=== PATIENT | female | born 1955 | race Hispanic/Latino ===

== ENCOUNTER 2019-08-19 18:44 | Inpatient (IN) | payer MEDICARE ==
[~2019-08-19] VITALS: Ht 149.9 cm; Wt 96.8 kg
[~2019-08-19 18:44] MED LIST: ACET-66 PO; CALC117719 PO; DICY20TA11 PO; FOLI1TAB85 PO; GLIP5TAB11 PO; KBU PO; LISI-617 PO; ONDA4TAB10 PO; TRAM50TA4 PO; TYLENOL PM PO
[2019-08-19 20:10] LABS: BASOPHILS % (AUTO) 0.2 % (0.0-5.0); HEMATOCRIT 39.4 % (36-48); LYMPHOCYTES % (AUTO) 22.2 % (21.0-51.0); MEAN CORPUSCULAR HGB CONC 32.5 g/dL (32.0-36.0); MEAN CORPUSCULAR VOLUME 101.5 fL (79-99); MONOCYTES % (AUTO) 6.4 % (3.0-13.0); NEUTROPHILS % (AUTO) 70.8 % (40.0-77.0); PLATELET COUNT (AUTO) 205 K/uL (130-400); RED BLOOD CELL COUNT(AUTO) 3.88 MIL/uL (4.00-5.50); RED CELL DISTRIBUTION WIDTH 13.2 % (11.0-15.5); WHITE BLOOD COUNT (AUTO) 5.4 K/uL (4.8-10.8)
[2019-08-19] MEDS ORDERED: LEVOFLOXACIN 500 MG/D5W 100 ML 100 ML ONE (20:13)
[2019-08-19 20:38] LABS: INR 0.98 (0.85-1.15); PARTIAL THROMBOPLASTIN TIME 30.3 SEC (26.3-35.5); PROTHROMBIN TIME 10.6 SEC (9.6-11.6)
[2019-08-19 20:53] LABS: ALBUMIN 3.7 g/dL (3.5-5.0); BILIRUBIN,TOTAL 0.5 mg/dL (0.2-1.0); POTASSIUM 4.2 mmol/L (3.5-5.1); TOTAL PROTEIN, SERUM 8.9 g/dL (6.0-8.3)
[2019-08-19 20:59] LABS: CREATININE 9.2 mg/dL (0.5-1.5)
[2019-08-19] MEDS ORDERED: IOHEXOL-350 75 ML VIAL IV ONE (21:52)
[2019-08-19] MEDS ORDERED: IOHEXOL 350 MG/ML 100ML INFUS..BTL IV ONE (22:07)
[2019-08-20] MEDS ORDERED: HYDRALAZINE HCL 20 MG/ML VIAL IV PRN (00:15)
[2019-08-20] MEDS ORDERED: MORPHINE SULFATE 2 MG/ML 1ML SYG IV PRN (00:15)
[2019-08-20] MEDS: AZITHROMYCIN 500MG+NS 250ML 250 ML IV SCH (00:15)
[2019-08-20] MEDS ORDERED: NITROGLYCERIN 0.4 MG SL TAB SL PRN (00:15)
[2019-08-20] MEDS: CEFTRIAXONE SODIUM 1 GM IV SCH (00:15)
[2019-08-20] MEDS ORDERED: LACTULOSE 20 GM/30 ML UDCUP PO PRN (00:15)
[2019-08-20] MEDS ORDERED: ACETAMINOPHEN 325 MG TAB PO PRN ×2 (00:15)
[2019-08-20] MEDS ORDERED: ONDANSETRON HCL 4 MG/2 ML VIAL IV PRN (00:15)
[2019-08-20] MEDS: HEPARIN SODIUM 5000UNIT/ML 1ML VIAL SQ SCH ×3 (00:45→22:43)
[2019-08-20] MEDS ORDERED: AZITHROMYCIN 500MG+NS 250ML 250 ML IV ONE (00:50)
[2019-08-20] MEDS ORDERED: CEFTRIAXONE SODIUM 1 GM ONE (00:50)
[2019-08-20 00:59] LABS: CHOLESTEROL 120 mg/dL (<200); HDL CHOLESTEROL 44 mg/dL (35-85); LDL DIRECT 58 mg/dL (0-99); TRIGLYCERIDES 184 mg/dL (30-200)
[2019-08-20 01:27] LABS: HEMOGLOBIN A1C 7.2 % (4.0-6.0)
[2019-08-20] MEDS: ALBUTEROL INHALER 90MCG/INH IH SCH ×6 (02:00→22:00)
[2019-08-20 04:20] LABS: BASOPHILS % (AUTO) 0.2 % (0.0-5.0); HEMATOCRIT 32.7 % (36-48); LYMPHOCYTES % (AUTO) 24.5 % (21.0-51.0); MEAN CORPUSCULAR HEMOGLOBIN 32.7 pg (27.0-33.0); MEAN CORPUSCULAR HGB CONC 32.7 g/dL (32.0-36.0); MONOCYTES % (AUTO) 7.4 % (3.0-13.0); NEUTROPHILS % (AUTO) 67.5 % (40.0-77.0); PLATELET COUNT (AUTO) 170 K/uL (130-400); RED BLOOD CELL COUNT(AUTO) 3.27 MIL/uL (4.00-5.50); RED CELL DISTRIBUTION WIDTH 12.9 % (11.0-15.5); WHITE BLOOD COUNT (AUTO) 4.6 K/uL (4.8-10.8)
[2019-08-20 04:41] LABS: POTASSIUM 4.5 mmol/L (3.5-5.1)
[2019-08-20] MEDS: INSULIN HUMULIN R 100 UNIT/ML 3ML SQ SCH ×4 (07:30→21:00)
[2019-08-20] MEDS ORDERED: ENOXAPARIN SODIUM 40 MG/0.4 ML SYRINGE SQ SCH (09:00)
[2019-08-20] MEDS: FAMOTIDINE 20MG TAB 20 MG TAB PO SCH (09:00)
[2019-08-20] MEDS: METOPROLOL TARTRATE 25 MG TAB PO SCH ×2 (09:00→21:00)
[2019-08-20] MEDS ORDERED: FAMOTIDINE 20MG TAB 20 MG TAB ONE (11:18)
[2019-08-20] MEDS ORDERED: METOPROLOL TARTRATE 25 MG TAB ONE (11:18)
[2019-08-20] MEDS: METHYLPREDNISOLONE SOD SUCC 40MG/ML 1ML IVP SCH ×2 (11:30→21:00)
[2019-08-20] MEDS ORDERED: METHYLPREDNISOLONE SOD SUCC 40MG/ML 1ML ONE (11:34)
[2019-08-20] MEDS ORDERED: HEPARIN SODIUM 5000UNIT/ML 1ML VIAL ONE (18:23)
[2019-08-20] MEDS: ATORVASTATIN CALCIUM 20 MG TABLET PO SCH (21:00)
[2019-08-20 23:05] VITALS: BP 151/73
[2019-08-20] MEDS ORDERED: GABA-529 PO (23:26)
[2019-08-20] MEDS ORDERED: FOLI1TAB85 PO (23:26)
[2019-08-20] MEDS ORDERED: LATA7.5D OP (23:26)
[2019-08-20] MEDS ORDERED: RELION GLUCOSE PO (23:26)
[2019-08-20 23:52] VITALS: BP 148/68
[2019-08-21] MEDS: AZITHROMYCIN 500MG+NS 250ML 250 ML IV SCH (00:17)
[2019-08-21] MEDS: CEFTRIAXONE SODIUM 1 GM IV SCH (00:18)
[2019-08-21] MEDS: ALBUTEROL INHALER 90MCG/INH IH SCH ×4 (01:10→20:37)
[2019-08-21 03:40] VITALS: BP 148/77
[2019-08-21] MEDS: INSULIN HUMULIN R 100 UNIT/ML 3ML SQ SCH ×4 (05:45→21:33)
[2019-08-21 06:49] LABS: BASOPHILS % (AUTO) 0.2 % (0.0-5.0); HEMATOCRIT 33.1 % (36-48); LYMPHOCYTES % (AUTO) 17.2 % (21.0-51.0); MEAN CORPUSCULAR HEMOGLOBIN 32.4 pg (27.0-33.0); MEAN CORPUSCULAR HGB CONC 32.3 g/dL (32.0-36.0); MEAN CORPUSCULAR VOLUME 100.3 fL (79-99); MONOCYTES % (AUTO) 6.9 % (3.0-13.0); PLATELET COUNT (AUTO) 164 K/uL (130-400); RED CELL DISTRIBUTION WIDTH 12.6 % (11.0-15.5); WHITE BLOOD COUNT (AUTO) 4.4 K/uL (4.8-10.8)
[2019-08-21 06:57] LABS: CREATININE 7.4 mg/dL (0.5-1.5); POTASSIUM 4.4 mmol/L (3.5-5.1)
[2019-08-21 08:41] VITALS: BP 150/73
[2019-08-21] MEDS ORDERED: HEPARIN SODIUM 5000UNIT/ML 1ML VIAL SQ SCH ×2 (09:00→22:00)
[2019-08-21] MEDS: METOPROLOL TARTRATE 25 MG TAB PO SCH ×2 (10:26→20:30)
[2019-08-21] MEDS: LISINOPRIL 5 MG TABLET PO SCH (10:26)
[2019-08-21] MEDS: FAMOTIDINE 20MG TAB 20 MG TAB PO SCH (10:26)
[2019-08-21] MEDS: FOLIC ACID/VITAMIN B COMP W-C 1 CAP TAB PO SCH (10:26)
[2019-08-21] MEDS: METHYLPREDNISOLONE SOD SUCC 40MG/ML 1ML IVP SCH (10:27)
[2019-08-21 12:39] VITALS: BP 154/79
--- NOTE | 2019-08-21 16:04 | NUR ---
cm note spoke to pt's daughter bam, and states pt resides at home, with her, pt ambulates with walker and cane, no HH, no provider, states she provides transports to , [place] plan is back to same home setting. provided with iinformation on provider services and [facility] agency on aging for possible provider assistance. states no dc needs. Addendum: 08/21/19 at 1608 by JUAN NUNEZ CM Amended: Links added.
[2019-08-21 16:28] VITALS: BP 146/78
--- NOTE | 2019-08-21 18:30 | NUR ---
LABS DR ALFREDO AWARE OF ABNORMAL LABS
[2019-08-21] MEDS ORDERED: METHYLPREDNISOLONE SOD SUCC 125MG/2ML VIAL IVP SCH (19:15)
[2019-08-21] MEDS ORDERED: METHYLPREDNISOLONE SOD SUCC 40MG/ML 1ML IVP SCH (19:15)
[2019-08-21] MEDS ORDERED: PHARMACY COMMUNICATION MISC SCH (19:30)
[2019-08-21 20:29] VITALS: BP 109/50
[2019-08-21] MEDS: ATORVASTATIN CALCIUM 20 MG TABLET PO SCH (20:30)
[2019-08-21] MEDS: GABAPENTIN 100 MG CAPSULE PO SCH (20:30)
[2019-08-21] MEDS: METHYLPREDNISOLONE SOD SUCC 125MG/2ML VIAL IVP SCH (20:30)
[2019-08-21] MEDS: LATANOPROST 2.5 ML DROPS OP SCH (20:36)
[2019-08-21] MEDS ORDERED: ALBUTEROL INHALER 90MCG/INH IH SCH (22:00)
[2019-08-22] VITALS (7 sets, daily range): BP systolic 119–148; BP diastolic 51–73
[2019-08-22] MEDS: CEFTRIAXONE SODIUM 1 GM IV SCH (00:23)
[2019-08-22] MEDS: AZITHROMYCIN 500MG+NS 250ML 250 ML IV SCH (00:24)
[2019-08-22] MEDS: ALBUTEROL INHALER 90MCG/INH IH SCH ×6 (02:12→22:24)
[2019-08-22] MEDS: METHYLPREDNISOLONE SOD SUCC 125MG/2ML VIAL IVP SCH ×3 (04:24→22:10)
[2019-08-22] MEDS: INSULIN HUMULIN R 100 UNIT/ML 3ML SQ SCH ×3 (06:19→22:11)
[2019-08-22 06:56] LABS: HEMATOCRIT 33.7 % (36-48); LYMPHOCYTES % (AUTO) 10.1 % (21.0-51.0); MEAN CORPUSCULAR HEMOGLOBIN 32.8 pg (27.0-33.0); MEAN CORPUSCULAR HGB CONC 32.6 g/dL (32.0-36.0); MEAN CORPUSCULAR VOLUME 100.6 fL (79-99); MONOCYTES % (AUTO) 1.8 % (3.0-13.0); NEUTROPHILS % (AUTO) 87.8 % (40.0-77.0); PLATELET COUNT (AUTO) 192 K/uL (130-400); RED BLOOD CELL COUNT(AUTO) 3.35 MIL/uL (4.00-5.50); RED CELL DISTRIBUTION WIDTH 12.8 % (11.0-15.5); WHITE BLOOD COUNT (AUTO) 7.2 K/uL (4.8-10.8)
[2019-08-22 07:19] LABS: ALBUMIN 2.7 g/dL (3.5-5.0); BILIRUBIN,TOTAL 0.3 mg/dL (0.2-1.0); CRP QUANTITATIVE 88.1 mg/L (0.00-9.0); POTASSIUM 4.4 mmol/L (3.5-5.1); TOTAL PROTEIN, SERUM 7.1 g/dL (6.0-8.3)
[2019-08-22 07:21] LABS: CREATININE 9.7 mg/dL (0.5-1.5)
--- NOTE | 2019-08-22 07:45 | NUR ---
ASSESSMENT ENCOUNTERED PT A&OX3, CALM COOPERATIVE AND DOES NOT APPEAR TO BE IN ANY DISTRESS NOR ANY NEURO DEFICITS PRESENT. PT DENIES PAIN, DIZZINESS OR NAUSEA BUT DOES C/O DYSPNEA ON EXERTION, INFORMED PT TO NOTIFY FOR ASSISTANCE TO BATHROOM FOR O2SAT MONITORING WITH AMBULATION. PT AGREED AND STATED WOULD CALL. LAVA WITH BRUIT/THRILL PRESENT. CALL LIGHT WITHIN REACH.
[2019-08-22] MEDS ORDERED: METHYLPREDNISOLONE SOD SUCC 40MG/ML 1ML IVP SCH ×2 (09:15→13:00)
[2019-08-22] MEDS ORDERED: PHARMACY COMMUNICATION MISC SCH (10:30)
[2019-08-22] MEDS: FAMOTIDINE 20MG TAB 20 MG TAB PO SCH (10:40)
[2019-08-22] MEDS: LISINOPRIL 5 MG TABLET PO SCH (10:40)
[2019-08-22] MEDS: METOPROLOL TARTRATE 25 MG TAB PO SCH ×2 (10:40→22:10)
[2019-08-22] MEDS: FOLIC ACID/VITAMIN B COMP W-C 1 CAP TAB PO SCH (10:40)
[2019-08-22] MEDS: ENOXAPARIN SODIUM 100 MG/1 ML SQ SCH (10:41)
[2019-08-22] MEDS ORDERED: METHYLPREDNISOLONE SOD SUCC 125MG/2ML VIAL IVP SCH (13:00)
[2019-08-22] MEDS: ATORVASTATIN CALCIUM 20 MG TABLET PO SCH (22:10)
[2019-08-22] MEDS: GABAPENTIN 100 MG CAPSULE PO SCH (22:10)
[2019-08-22] MEDS: LATANOPROST 2.5 ML DROPS OP SCH (22:25)
[2019-08-23] MEDS: ALBUTEROL INHALER 90MCG/INH IH SCH ×6 (02:28→22:36)
[2019-08-23] MEDS: CEFTRIAXONE SODIUM 1 GM IV SCH (02:28)
[2019-08-23 03:41] VITALS: BP 129/58
[2019-08-23] MEDS: AZITHROMYCIN 500MG+NS 250ML 250 ML IV SCH (03:47)
[2019-08-23 05:33] LABS: HEMATOCRIT 34.7 % (36-48); MEAN CORPUSCULAR HEMOGLOBIN 32.6 pg (27.0-33.0); MEAN CORPUSCULAR HGB CONC 32.6 g/dL (32.0-36.0); PLATELET COUNT (AUTO) 221 K/uL (130-400); RED BLOOD CELL COUNT(AUTO) 3.47 MIL/uL (4.00-5.50); RED CELL DISTRIBUTION WIDTH 12.9 % (11.0-15.5); WHITE BLOOD COUNT (AUTO) 11.7 K/uL (4.8-10.8)
[2019-08-23] MEDS: INSULIN HUMULIN R 100 UNIT/ML 3ML SQ SCH ×4 (05:49→22:41)
[2019-08-23 05:56] LABS: ALBUMIN 2.7 g/dL (3.5-5.0); BILIRUBIN,TOTAL 0.4 mg/dL (0.2-1.0); CRP QUANTITATIVE 55.2 mg/L (0.00-9.0); POTASSIUM 4.4 mmol/L (3.5-5.1); TOTAL PROTEIN, SERUM 6.9 g/dL (6.0-8.3)
[2019-08-23 05:58] LABS: BAND NEUTROPHILS % (MANUAL) 6 % (0-2); LYMPHOCYTES % (MANUAL) 10 % (22-44); MAN.DIFF COMMENT-IMPRESSION MANUAL DIFFERENTIAL; PLATELET MORPHOLOGY COMMENT ADEQUATE; SEGMENTED NEUTROPHILS % 84 % (40-70)
[2019-08-23 06:01] LABS: CREATININE 11.6 mg/dL (0.5-1.5)
[2019-08-23] MEDS: METHYLPREDNISOLONE SOD SUCC 125MG/2ML VIAL IVP SCH ×3 (06:32→21:16)
[2019-08-23] MEDS ORDERED: REMDESIVIR (INVESTIGATIONAL) 200 MG in SODIUM CHLORIDE 0.9% 250 ML IV ONE (08:45)
[2019-08-23 08:51] VITALS: BP 123/69
[2019-08-23] MEDS: FAMOTIDINE 20MG TAB 20 MG TAB PO SCH (09:55)
[2019-08-23] MEDS: FOLIC ACID/VITAMIN B COMP W-C 1 CAP TAB PO SCH (09:55)
[2019-08-23] MEDS: METOPROLOL TARTRATE 25 MG TAB PO SCH ×2 (09:55→21:17)
[2019-08-23] MEDS: LISINOPRIL 5 MG TABLET PO SCH (09:56)
[2019-08-23] MEDS: ENOXAPARIN SODIUM 100 MG/1 ML SQ SCH (09:56)
[2019-08-23 10:12] LABS: HEPATITIS A ANTIBODY IGM Negative (Negative); HEPATITIS B CORE IGM Negative (Negative); HEPATITIS Bs ANTIGEN SCREEN P Negative (Negative)
[2019-08-23 12:36] VITALS: BP 140/60
[2019-08-23 15:31] VITALS: BP 141/67
[2019-08-23 19:37] VITALS: BP 136/86
[2019-08-23] MEDS: ATORVASTATIN CALCIUM 20 MG TABLET PO SCH (21:17)
[2019-08-23] MEDS: GABAPENTIN 100 MG CAPSULE PO SCH (21:17)
[2019-08-23] MEDS: LATANOPROST 2.5 ML DROPS OP SCH (22:35)
[2019-08-23 23:28] VITALS: BP 148/61
--- NOTE | 2019-08-24 | NUR ---
PT IS AMBULATING. MINIMAL SOB. NO DISTRESS NOTED. CONTINUES ON ABT. ROCEPHIN AND AZITHROMYCIN.
[2019-08-24] MEDS: CEFTRIAXONE SODIUM 1 GM IV SCH (00:25)
[2019-08-24] MEDS: AZITHROMYCIN 500MG+NS 250ML 250 ML IV SCH (00:25)
[2019-08-24 03:13] VITALS: BP 146/68
[2019-08-24] MEDS: METHYLPREDNISOLONE SOD SUCC 125MG/2ML VIAL IVP SCH ×2 (05:15→06:00)
[2019-08-24] MEDS: INSULIN HUMULIN R 100 UNIT/ML 3ML SQ SCH ×3 (05:46→17:22)
[2019-08-24] MEDS: ALBUTEROL INHALER 90MCG/INH IH SCH ×6 (06:08→21:17)
[2019-08-24 08:02] LABS: BASOPHILS % (AUTO) 0.1 % (0.0-5.0); MEAN CORPUSCULAR HEMOGLOBIN 32.8 pg (27.0-33.0); MEAN CORPUSCULAR HGB CONC 33.2 g/dL (32.0-36.0); MEAN CORPUSCULAR VOLUME 98.8 fL (79-99); MONOCYTES % (AUTO) 2.4 % (3.0-13.0); NEUTROPHILS % (AUTO) 92.3 % (40.0-77.0); PLATELET COUNT (AUTO) 233 K/uL (130-400); RED BLOOD CELL COUNT(AUTO) 3.44 MIL/uL (4.00-5.50); RED CELL DISTRIBUTION WIDTH 12.8 % (11.0-15.5); WHITE BLOOD COUNT (AUTO) 13.3 K/uL (4.8-10.8)
[2019-08-24] MEDS: METOPROLOL TARTRATE 25 MG TAB PO SCH ×2 (08:17→21:16)
[2019-08-24] MEDS: FOLIC ACID/VITAMIN B COMP W-C 1 CAP TAB PO SCH (08:18)
[2019-08-24] MEDS: LISINOPRIL 5 MG TABLET PO SCH (08:20)
[2019-08-24] MEDS: ENOXAPARIN SODIUM 100 MG/1 ML SQ SCH (08:21)
[2019-08-24 08:32] LABS: ALBUMIN 2.9 g/dL (3.5-5.0); BILIRUBIN,TOTAL 0.4 mg/dL (0.2-1.0); CRP QUANTITATIVE 40.5 mg/L (0.00-9.0); TOTAL PROTEIN, SERUM 7.3 g/dL (6.0-8.3)
[2019-08-24 08:34] VITALS: BP 129/80
[2019-08-24 08:35] LABS: CREATININE 7.9 mg/dL (0.5-1.5)
[2019-08-24] MEDS ORDERED: REMDESIVIR (INVESTIGATIONAL) 100 MG in SODIUM CHLORIDE 0.9% 250 ML IV SCH (09:00)
[2019-08-24] MEDS: FAMOTIDINE 20MG TAB 20 MG TAB PO SCH (09:20)
[2019-08-24] MEDS: METHYLPREDNISOLONE SOD SUCC 40MG/ML 1ML IVP SCH ×2 (09:30→17:23)
[2019-08-24 12:30] VITALS: BP 127/62
[2019-08-24 16:42] VITALS: BP 147/77
[2019-08-24 20:46] VITALS: BP 147/87
[2019-08-24] MEDS ORDERED: INSULIN HUMULIN R 100 UNIT/ML 3ML ONE (21:13)
[2019-08-24] MEDS: GABAPENTIN 100 MG CAPSULE PO SCH (21:16)
[2019-08-24] MEDS: LATANOPROST 2.5 ML DROPS OP SCH (21:16)
[2019-08-24] MEDS: ATORVASTATIN CALCIUM 20 MG TABLET PO SCH (21:16)
[2019-08-24] MEDS ORDERED: LOPERAMIDE HCL 2 MG CAP PO ONE (22:04)
[2019-08-25] VITALS: BP 149/85
[2019-08-25] MEDS: CEFTRIAXONE SODIUM 1 GM IV SCH (00:29)
[2019-08-25] MEDS: AZITHROMYCIN 500MG+NS 250ML 250 ML IV SCH (00:30)
[2019-08-25] MEDS: METHYLPREDNISOLONE SOD SUCC 40MG/ML 1ML IVP SCH (01:03)
[2019-08-25] MEDS: ALBUTEROL INHALER 90MCG/INH IH SCH ×5 (01:04→18:00)
--- NOTE | 2019-08-25 01:31 | NUR ---
IV REDRESSED. PT CONTINUES ON ABT. AND SOLUMEDROL.
[2019-08-25 04:00] VITALS: BP 138/93
[2019-08-25 06:18] LABS: HEMATOCRIT 29.6 % (36-48); MEAN CORPUSCULAR HEMOGLOBIN 32.9 pg (27.0-33.0); MEAN CORPUSCULAR HGB CONC 33.1 g/dL (32.0-36.0); MEAN CORPUSCULAR VOLUME 99.3 fL (79-99); PLATELET COUNT (AUTO) 239 K/uL (130-400); RED BLOOD CELL COUNT(AUTO) 2.98 MIL/uL (4.00-5.50); RED CELL DISTRIBUTION WIDTH 12.7 % (11.0-15.5); WHITE BLOOD COUNT (AUTO) 11.6 K/uL (4.8-10.8)
[2019-08-25] MEDS: INSULIN HUMULIN R 100 UNIT/ML 3ML SQ SCH ×4 (06:39→21:45)
[2019-08-25 06:47] LABS: ALBUMIN 2.5 g/dL (3.5-5.0); BILIRUBIN,TOTAL 0.3 mg/dL (0.2-1.0); CRP QUANTITATIVE 23.1 mg/L (0.00-9.0); POTASSIUM 4.4 mmol/L (3.5-5.1); TOTAL PROTEIN, SERUM 6.4 g/dL (6.0-8.3)
[2019-08-25 06:54] LABS: CREATININE 9.9 mg/dL (0.5-1.5)
[2019-08-25 08:44] VITALS: BP 130/64
[2019-08-25] MEDS: FAMOTIDINE 20MG TAB 20 MG TAB PO SCH (09:00)
[2019-08-25] MEDS: LISINOPRIL 5 MG TABLET PO SCH (09:00)
[2019-08-25] MEDS ORDERED: INSULIN GLARGINE 100 UNITS/ML 10 ML VIAL SQ SCH ×2 (09:00→13:00)
[2019-08-25] MEDS: METOPROLOL TARTRATE 25 MG TAB PO SCH ×2 (09:00→21:41)
[2019-08-25] MEDS: FOLIC ACID/VITAMIN B COMP W-C 1 CAP TAB PO SCH (09:00)
[2019-08-25 09:23] LABS: LYMPHOCYTES % (MANUAL) 3 % (22-44); MAN.DIFF COMMENT-IMPRESSION MANUAL DIFFERENTIAL; MONOCYTES % (MANUAL) 2 % (2-9); PLATELET MORPHOLOGY COMMENT ADEQUATE; SEGMENTED NEUTROPHILS % 95 % (40-70)
--- NOTE | 2019-08-25 11:03 | NUR ---
DC PLAN DID NOT QUALIFY FOR HOME 02. Addendum: 08/25/19 at 1103 by QUINCY MONTANO RN CM Amended: Links added.
[2019-08-25 12:12] VITALS: BP 121/59
[2019-08-25] MEDS: DEXAMETHASONE 4 MG TAB PO SCH (12:45)
[2019-08-25] MEDS: ENOXAPARIN SODIUM 100 MG/1 ML SQ SCH (12:45)
[2019-08-25 16:31] VITALS: BP 149/92
[2019-08-25 20:00] VITALS: BP 154/77
[2019-08-25] MEDS: ATORVASTATIN CALCIUM 20 MG TABLET PO SCH (21:41)
[2019-08-25] MEDS: GABAPENTIN 100 MG CAPSULE PO SCH (21:42)
[2019-08-25] MEDS: LATANOPROST 2.5 ML DROPS OP SCH (21:48)
[2019-08-26] VITALS (7 sets, daily range): BP systolic 106–169; BP diastolic 66–91
[2019-08-26] MEDS: CEFTRIAXONE SODIUM 1 GM IV SCH (00:22)
[2019-08-26] MEDS: AZITHROMYCIN 500MG+NS 250ML 250 ML IV SCH ×2 (00:22→23:11)
[2019-08-26 05:31] LABS: BASOPHILS % (AUTO) 0.1 % (0.0-5.0); HEMATOCRIT 30.1 % (36-48); LYMPHOCYTES % (AUTO) 3.9 % (21.0-51.0); MEAN CORPUSCULAR HEMOGLOBIN 33.4 pg (27.0-33.0); MEAN CORPUSCULAR HGB CONC 33.9 g/dL (32.0-36.0); MEAN CORPUSCULAR VOLUME 98.7 fL (79-99); MONOCYTES % (AUTO) 5.1 % (3.0-13.0); NEUTROPHILS % (AUTO) 89.5 % (40.0-77.0); PLATELET COUNT (AUTO) 235 K/uL (130-400); RED BLOOD CELL COUNT(AUTO) 3.05 MIL/uL (4.00-5.50); RED CELL DISTRIBUTION WIDTH 12.5 % (11.0-15.5); WHITE BLOOD COUNT (AUTO) 11.1 K/uL (4.8-10.8)
[2019-08-26 06:05] LABS: ALBUMIN 2.6 g/dL (3.5-5.0); BILIRUBIN,TOTAL 0.3 mg/dL (0.2-1.0); CREATININE 6.9 mg/dL (0.5-1.5); CRP QUANTITATIVE 17.6 mg/L (0.00-9.0); POTASSIUM 4.5 mmol/L (3.5-5.1); TOTAL PROTEIN, SERUM 6.5 g/dL (6.0-8.3)
[2019-08-26] MEDS: INSULIN HUMULIN R 100 UNIT/ML 3ML SQ SCH ×4 (06:20→21:35)
--- NOTE | 2019-08-26 08:30 | NUR ---
RECEIVED PATIENT ON BED WITH 2L O2 PER NC WITH NO C/O SOB NOR CHEST PAIN. PATIENT HOPES TO GET DISCHARGED TODAY. I INFORMED HER THAT CONTACT CENTER ENGINEER ORDERED FOR NEW CONSULT WITH DR. LE FOR BACTEREMIA. NO ORDERS FOR DISCHARGE JUST YET. ENHANCED PRECAUTIONS MAINTAINED. FULL ASSESSMENT DONE. CALL LIGHT WITHIN REACH.
[2019-08-26] MEDS: FOLIC ACID/VITAMIN B COMP W-C 1 CAP TAB PO SCH (08:50)
[2019-08-26] MEDS: DEXAMETHASONE 4 MG TAB PO SCH (08:50)
[2019-08-26] MEDS: METOPROLOL TARTRATE 25 MG TAB PO SCH ×2 (08:51→21:29)
[2019-08-26] MEDS: LISINOPRIL 5 MG TABLET PO SCH (08:51)
[2019-08-26] MEDS: ENOXAPARIN SODIUM 60 MG/0.6 ML SQ SCH (08:52)
[2019-08-26] MEDS: FAMOTIDINE 20MG TAB 20 MG TAB PO SCH (08:52)
[2019-08-26] MEDS: ALBUTEROL INHALER 90MCG/INH IH SCH ×3 (10:00→18:00)
[2019-08-26] MEDS: ZOSYN 3.375GM+NS 50ML 50 ML IV SCH ×2 (12:33→23:06)
--- NOTE | 2019-08-26 15:00 | NUR ---
DR. LE IS IN TO SEE PATIENT. PER MD, BLOOD CULTURE WAS A CONTAMINANT. ZOSYN WAS STARTED FOR PNEUMONIA.
--- NOTE | 2019-08-26 16:30 | NUR ---
PER RT BERNY, PATIENT DOES NOT QUALIFY FOR HOME O2. TOOK O2 OFF. PATIENT TOLERATED ROOM AIR.
[2019-08-26] MEDS: ATORVASTATIN CALCIUM 20 MG TABLET PO SCH (21:29)
[2019-08-26] MEDS: GABAPENTIN 100 MG CAPSULE PO SCH (21:30)
[2019-08-26] MEDS: LATANOPROST 2.5 ML DROPS OP SCH (21:30)
[2019-08-27 03:49] VITALS: BP 156/79
[2019-08-27 05:55] LABS: BASOPHILS % (AUTO) 0.2 % (0.0-5.0); EOSINOPHILS % (AUTO) 0.3 % (0.0-8.0); HEMATOCRIT 28.3 % (36-48); LYMPHOCYTES % (AUTO) 5.5 % (21.0-51.0); MEAN CORPUSCULAR HEMOGLOBIN 32.5 pg (27.0-33.0); MEAN CORPUSCULAR HGB CONC 32.2 g/dL (32.0-36.0); MEAN CORPUSCULAR VOLUME 101.1 fL (79-99); MONOCYTES % (AUTO) 7.5 % (3.0-13.0); NEUTROPHILS % (AUTO) 84.6 % (40.0-77.0); PLATELET COUNT (AUTO) 186 K/uL (130-400); RED CELL DISTRIBUTION WIDTH 12.5 % (11.0-15.5); WHITE BLOOD COUNT (AUTO) 9.5 K/uL (4.8-10.8)
[2019-08-27 06:06] LABS: CRP QUANTITATIVE 14.8 mg/L (0.00-9.0); POTASSIUM 4.7 mmol/L (3.5-5.1)
[2019-08-27 06:22] LABS: CREATININE 9.5 mg/dL (0.5-1.5)
[2019-08-27] MEDS: INSULIN HUMULIN R 100 UNIT/ML 3ML SQ SCH ×4 (06:49→20:22)
[2019-08-27] MEDS: METOPROLOL TARTRATE 25 MG TAB PO SCH ×2 (08:19→20:11)
[2019-08-27] MEDS: FAMOTIDINE 20MG TAB 20 MG TAB PO SCH (08:19)
[2019-08-27] MEDS: FOLIC ACID/VITAMIN B COMP W-C 1 CAP TAB PO SCH (08:19)
[2019-08-27] MEDS: LISINOPRIL 5 MG TABLET PO SCH (08:20)
[2019-08-27 08:24] VITALS: BP 132/70
[2019-08-27] MEDS: ENOXAPARIN SODIUM 60 MG/0.6 ML SQ SCH (09:49)
[2019-08-27] MEDS: DEXAMETHASONE 4 MG TAB PO SCH (09:49)
[2019-08-27] MEDS: ALBUTEROL INHALER 90MCG/INH IH SCH ×3 (09:50→17:12)
[2019-08-27 10:53] VITALS: BP 109/62
[2019-08-27] MEDS: ZOSYN 3.375GM+NS 50ML 50 ML IV SCH (12:11)
[2019-08-27 16:00] VITALS: BP 138/63
[2019-08-27 19:38] VITALS: BP 117/62
[2019-08-27] MEDS: ATORVASTATIN CALCIUM 20 MG TABLET PO SCH (20:11)
[2019-08-27] MEDS: GABAPENTIN 100 MG CAPSULE PO SCH (20:11)
[2019-08-27] MEDS: LATANOPROST 2.5 ML DROPS OP SCH (20:23)
[2019-08-28] VITALS (7 sets, daily range): BP systolic 107–145; BP diastolic 48–84
[2019-08-28] MEDS: ZOSYN 3.375GM+NS 50ML 50 ML IV SCH ×2 (00:02→11:31)
[2019-08-28] MEDS: AZITHROMYCIN 500MG+NS 250ML 250 ML IV SCH (00:02)
[2019-08-28 06:40] LABS: BASOPHILS % (AUTO) 0.3 % (0.0-5.0); EOSINOPHILS % (AUTO) 0.3 % (0.0-8.0); HEMATOCRIT 26.8 % (36-48); LYMPHOCYTES % (AUTO) 7.7 % (21.0-51.0); MEAN CORPUSCULAR HEMOGLOBIN 32.8 pg (27.0-33.0); MEAN CORPUSCULAR HGB CONC 33.6 g/dL (32.0-36.0); MEAN CORPUSCULAR VOLUME 97.8 fL (79-99); MONOCYTES % (AUTO) 7.8 % (3.0-13.0); NEUTROPHILS % (AUTO) 79.8 % (40.0-77.0); PLATELET COUNT (AUTO) 177 K/uL (130-400); RED BLOOD CELL COUNT(AUTO) 2.74 MIL/uL (4.00-5.50); RED CELL DISTRIBUTION WIDTH 12.1 % (11.0-15.5); WHITE BLOOD COUNT (AUTO) 6.8 K/uL (4.8-10.8)
[2019-08-28 07:01] LABS: CREATININE 6.8 mg/dL (0.5-1.5); CRP QUANTITATIVE 29.9 mg/L (0.00-9.0); POTASSIUM 4.4 mmol/L (3.5-5.1)
[2019-08-28] MEDS: INSULIN HUMULIN R 100 UNIT/ML 3ML SQ SCH ×4 (07:13→21:08)
[2019-08-28] MEDS: DEXAMETHASONE 4 MG TAB PO SCH (07:53)
[2019-08-28] MEDS: METOPROLOL TARTRATE 25 MG TAB PO SCH ×2 (07:53→20:15)
[2019-08-28] MEDS: LISINOPRIL 5 MG TABLET PO SCH (07:54)
[2019-08-28] MEDS: FOLIC ACID/VITAMIN B COMP W-C 1 CAP TAB PO SCH (07:54)
[2019-08-28] MEDS: FAMOTIDINE 20MG TAB 20 MG TAB PO SCH (07:55)
[2019-08-28] MEDS: ENOXAPARIN SODIUM 60 MG/0.6 ML SQ SCH (07:55)
[2019-08-28] MEDS: ALBUTEROL INHALER 90MCG/INH IH SCH ×4 (11:30→22:00)
--- NOTE | 2019-08-28 17:13 | NUR ---
HOME O2 EVAL PER RT SANJIV, PATIENT QUALIFIES FOR HOME O2 HER O2 SAT DROPPED TO 84% WITH THE WALK TEST. INFORMED DR. MORENO OF RESULTS.
[2019-08-28] MEDS: LATANOPROST 2.5 ML DROPS OP SCH (20:15)
[2019-08-28] MEDS: ATORVASTATIN CALCIUM 20 MG TABLET PO SCH (20:15)
[2019-08-28] MEDS: GABAPENTIN 100 MG CAPSULE PO SCH (20:15)
[2019-08-29] MEDS: INSULIN HUMULIN R 100 UNIT/ML 3ML SQ SCH ×5 (00:45→16:00)
[2019-08-29] MEDS: ZOSYN 3.375GM+NS 50ML 50 ML IV SCH ×2 (00:45→11:12)
[2019-08-29] MEDS: ALBUTEROL INHALER 90MCG/INH IH SCH ×4 (02:32→14:00)
[2019-08-29 03:05] VITALS: BP 148/72
[2019-08-29] MEDS: AZITHROMYCIN 500MG+NS 250ML 250 ML IV SCH (05:50)
[2019-08-29 05:56] LABS: BASOPHILS % (AUTO) 0.2 % (0.0-5.0); EOSINOPHILS % (AUTO) 0.2 % (0.0-8.0); HEMATOCRIT 27.1 % (36-48); LYMPHOCYTES % (AUTO) 8.2 % (21.0-51.0); MEAN CORPUSCULAR HEMOGLOBIN 32.6 pg (27.0-33.0); MEAN CORPUSCULAR HGB CONC 33.6 g/dL (32.0-36.0); MEAN CORPUSCULAR VOLUME 97.1 fL (79-99); MONOCYTES % (AUTO) 8.8 % (3.0-13.0); NEUTROPHILS % (AUTO) 78.9 % (40.0-77.0); PLATELET COUNT (AUTO) 186 K/uL (130-400); RED BLOOD CELL COUNT(AUTO) 2.79 MIL/uL (4.00-5.50); RED CELL DISTRIBUTION WIDTH 12.2 % (11.0-15.5); WHITE BLOOD COUNT (AUTO) 8.3 K/uL (4.8-10.8)
[2019-08-29 07:00] VITALS: BP 132/52
[2019-08-29] MEDS: ENOXAPARIN SODIUM 60 MG/0.6 ML SQ SCH (08:23)
[2019-08-29] MEDS: METOPROLOL TARTRATE 25 MG TAB PO SCH (08:26)
[2019-08-29] MEDS: LISINOPRIL 5 MG TABLET PO SCH (08:26)
[2019-08-29] MEDS: FOLIC ACID/VITAMIN B COMP W-C 1 CAP TAB PO SCH (08:26)
[2019-08-29] MEDS: DEXAMETHASONE 4 MG TAB PO SCH (08:26)
[2019-08-29] MEDS: FAMOTIDINE 20MG TAB 20 MG TAB PO SCH (08:27)
[2019-08-29] MEDS ORDERED: DEXTROSE 50%-WATER 50 ML DISP.SYRIN IV ONE (08:42)
[2019-08-29] MEDS ORDERED: DEXTROSE 50%-WATER 50 ML DISP.SYRIN IV PRN (09:15)
--- NOTE | 2019-08-29 10:28 | NUR ---
THI PLAN VISITED WITH PATIENT. TRIED TO CALL ROOM NO ANSWER. PATIENT SLEEPING. CALLED DAUGHTER GOT TELEPHONE ANGIE FOR ANY IN NETWORK 02. SENT INFO TO [facility] PATIENT. EDMOND WILL CONTINUE TO FOLLOW. Addendum: 08/29/19 at 1030 by QUINCY MONTANO RN CM Amended: Links added.
--- NOTE | 2019-08-29 10:53 | NUR ---
THI PLAN CALLED DAUGHTER TO ASK WHICH DIALYSIS C[facility] MOM GOES [facility]. [facility] [facility] [place] [facility] [place] TO TALK TO THEM AND MAKE SURE CHAIR IS STILL GOOD. CALLED [facility]. GAVE INFO NO FEVERS SINCE 08/20. FAXED PACKET WAITING FOR CALL BACK FROM ADMIN. Addendum: 08/29/19 at 1055 by QUINCY MONTANO RN CM Amended: Links added.
[2019-08-29 11:00] VITALS: BP 138/67
[2019-08-29] MEDS ORDERED: APIX2.5T PO (12:40)
[2019-08-29] MEDS ORDERED: DEXA6TAB PO (12:40)
--- NOTE | 2019-08-29 14:58 | NUR ---
THI MORALES SPOKE TO DEVI SUPERVISOR ASSEMBLY AT [facility] FOR PATIENT TO RETURN CHAIR TTS AT 445AM. AWARE PATIENT IS COVID POSITIVE. PATIENT TEST IS FROM AND NO FEVERS LAST 4 DAYS. [facility] TO RETURN. LET NURSE KNOW OF CHAIR TIME AND 02 APPROVED WITH HAITIAN PALATINE PATIENT. Addendum: 08/29/19 at 1506 by QUINCY MONTANO RN CM Amended: Links added.
--- NOTE | 2019-08-29 16:32 | NUR ---
DISCHARGED HOME, DISCHARGE INSTRUCTIONS WRITTEN AND EXPLAINED TO ADRYAN DAUGHTER AND PATIENT. BOTH VERBALIZE UNDERSTANDING OF INSTRUCITONS AND ARE AWARE OF UPCOMING APPOINTMENTS. COVID TEACHING GIVEN. PT IS TO [place] SELF. ONLY ALLOWED TO GO TO DIALYSIS AND DR APPOINTMENTS IF MD ALLOWS. HOME O2 IS SET UP. INTRUCTED PT TO USE WHEN AMBULATING.
== END 2019-08-29 16:20 | disposition home or self-care (01) | DRG 177 ==
LOC: EDH 18:44 → EDHIP 08-20 00:12 → 2AH 08-20 22:14
PROVIDERS: ADMIT Hospitalist; ATTEND Hospitalist
PROC: 5A1D70Z Performance of Urinary Filtration, Intermittent, Less than 6 Hours Per Day (ICD-10-PCS; principal; 2019-08-20)
PROC: 8E0ZXY6 Isolation (ICD-10-PCS; 2019-08-20)
PROC: 5A1D70Z Performance of Urinary Filtration, Intermittent, Less than 6 Hours Per Day (ICD-10-PCS; 2019-08-23)
PROC: 5A1D70Z Performance of Urinary Filtration, Intermittent, Less than 6 Hours Per Day (ICD-10-PCS; 2019-08-25)
PROC: 5A1D70Z Performance of Urinary Filtration, Intermittent, Less than 6 Hours Per Day (ICD-10-PCS; 2019-08-28)
DX: U07.1 COVID-19 (principal); J96.01 Acute respiratory failure with hypoxia; N18.6 End stage renal disease; J12.89 Other viral pneumonia; I12.0 Hypertensive chronic kidney disease with stage 5 chronic kidney disease or end stage renal disease; Z68.41 Body mass index [BMI] 40.0-44.9, adult; M62.82 Rhabdomyolysis; Y95 Nosocomial condition; D64.9 Anemia, unspecified; E66.9 Obesity, unspecified; E11.65 Type 2 diabetes mellitus with hyperglycemia; E11.649 Type 2 diabetes mellitus with hypoglycemia without coma; B96.89 Other specified bacterial agents as the cause of diseases classified elsewhere; B95.7 Other staphylococcus as the cause of diseases classified elsewhere; M47.815 Spondylosis without myelopathy or radiculopathy, thoracolumbar region; K44.9 Diaphragmatic hernia without obstruction or gangrene; E11.22 Type 2 diabetes mellitus with diabetic chronic kidney disease; Z99.2 Dependence on renal dialysis; Z88.0 Allergy status to penicillin; Z88.6 Allergy status to analgesic agent; Z82.0 Family history of epilepsy and other diseases of the nervous system; Z83.3 Family history of diabetes mellitus; Z82.3 Family history of stroke; Z82.49 Family history of ischemic heart disease and other diseases of the circulatory system
CPT/HCPCS: 36415; 71045; 71275; 80048; 80053; 80061; 80074; 82550; 82728; 82948; 83036; 83605; 83615; 83880; 84484; 85025; 85378; 85610; 85730; 86140; 86850; 86900; 86901; 87040; 87071; 87077; 87186; 87205; 87486; 87581; 87633; 87635; 87798; 90935; 93005; 94760; G0378; J0456; J0696; J1644; J1650; J1815; J1956; J2543; J2920; J2930; J7070; J8540; Q9967; U0003

== ENCOUNTER → 2020-08-03 | Outpatient (CLI) | payer MEDICARE ==
[~2020-08-03] MED LIST changes: +APIX2.5T PO; +DEXA6TAB PO; +GABA-529 PO; +LATA7.5D OP; -LISI-617 PO; +LISI-809 PO; +RELION GLUCOSE PO
== END | disposition home or self-care (01) ==
LOC: RAH 14:31
PROVIDERS: ATTEND Internal Medicine Critical Care Medicine
DX: I51.7 Cardiomegaly (principal); N26.1 Atrophy of kidney (terminal); J84.10 Pulmonary fibrosis, unspecified; Z90.49 Acquired absence of other specified parts of digestive tract
CPT/HCPCS: 71250

== ENCOUNTER 2021-06-11 07:53 | Emergency (ER) | payer MEDICARE ==
[~2021-06-11 07:53] MED LIST changes: -DICY20TA11 PO; +DICY20TA3 PO; -LISI-809 PO; +LISI5TAB21 PO
[2021-06-11 08:11] VITALS: BP 138/71
[2021-06-11 08:27] LABS: BASOPHILS % (AUTO) 0.4 % (0.0-5.0); EOSINOPHILS % (AUTO) 0.5 % (0.0-8.0); HEMATOCRIT 37.3 % (36-48); LYMPHOCYTES % (AUTO) 14.1 % (21.0-51.0); MEAN CORPUSCULAR HEMOGLOBIN 30.9 pg (27.0-33.0); MEAN CORPUSCULAR HGB CONC 31.4 g/dL (32.0-36.0); MEAN CORPUSCULAR VOLUME 98.4 fL (79-99); MONOCYTES % (AUTO) 5.2 % (3.0-13.0); NEUTROPHILS % (AUTO) 79.4 % (40.0-77.0); PLATELET COUNT (AUTO) 182 K/uL (130-400); RED BLOOD CELL COUNT(AUTO) 3.79 MIL/uL (4.00-5.50); RED CELL DISTRIBUTION WIDTH 12.5 % (11.0-15.5); WHITE BLOOD COUNT (AUTO) 7.3 K/uL (4.8-10.8)
[2021-06-11 08:40] LABS: CREATININE 7.7 mg/dL (0.5-1.5); POTASSIUM 5.6 mmol/L (3.5-5.1)
[2021-06-11 08:53] LABS: ALBUMIN 3.9 g/dL (3.5-5.0); BILIRUBIN,TOTAL 0.5 mg/dL (0.2-1.0); TOTAL PROTEIN, SERUM 7.8 g/dL (6.0-8.3)
== END 2021-06-11 09:56 | disposition home or self-care (01) ==
LOC: EDH 07:53
DX: E11.649 Type 2 diabetes mellitus with hypoglycemia without coma (principal); I10 Essential (primary) hypertension; Z88.6 Allergy status to analgesic agent; Z79.01 Long term (current) use of anticoagulants; Z79.52 Long term (current) use of systemic steroids; Z79.84 Long term (current) use of oral hypoglycemic drugs; Z79.899 Other long term (current) drug therapy
CPT/HCPCS: 36415; 80053; 82948; 84484; 85025; 93005

== ENCOUNTER 2021-07-04 11:11 | Emergency (ER) | payer MEDICARE ==
[~2021-07-04] VITALS: Ht 149.9 cm; Wt 88.5 kg
[2021-07-04] MEDS ORDERED: CYCLOBENZAPRINE HCL 10 MG TABLET PO SCH (12:30)
[2021-07-04] MEDS ORDERED: ACETAMINOPHEN 500 MG TABLET PO SCH (12:30)
[2021-07-04 12:35] LABS: BASOPHILS % (AUTO) 0.7 % (0.0-5.0); EOSINOPHILS % (AUTO) 1.6 % (0.0-8.0); HEMATOCRIT 35.7 % (36-48); LYMPHOCYTES % (AUTO) 23.1 % (21.0-51.0); MEAN CORPUSCULAR HEMOGLOBIN 32.1 pg (27.0-33.0); MEAN CORPUSCULAR HGB CONC 32.8 g/dL (32.0-36.0); MEAN CORPUSCULAR VOLUME 97.8 fL (79-99); MONOCYTES % (AUTO) 7.5 % (3.0-13.0); NEUTROPHILS % (AUTO) 66.8 % (40.0-77.0); PLATELET COUNT (AUTO) 155 K/uL (130-400); RED BLOOD CELL COUNT(AUTO) 3.65 MIL/uL (4.00-5.50); RED CELL DISTRIBUTION WIDTH 12.9 % (11.0-15.5); WHITE BLOOD COUNT (AUTO) 5.7 K/uL (4.8-10.8)
[2021-07-04 12:59] LABS: ALBUMIN 3.9 g/dL (3.5-5.0); BILIRUBIN,TOTAL 0.6 mg/dL (0.2-1.0); CREATININE 3.1 mg/dL (0.5-1.5); POTASSIUM 4.6 mmol/L (3.5-5.1); TOTAL PROTEIN, SERUM 7.5 g/dL (6.0-8.3)
[2021-07-04 13:42] VITALS: BP 149/63
[2021-07-04] MEDS ORDERED: CYCL10TA16 PO (13:47)
[2021-07-04] MEDS ORDERED: ACET-2247 PO (13:47)
== END 2021-07-04 13:57 | disposition home or self-care (01) ==
LOC: EDH 11:11
DX: R51.9 Headache, unspecified (principal); I12.0 Hypertensive chronic kidney disease with stage 5 chronic kidney disease or end stage renal disease; E11.22 Type 2 diabetes mellitus with diabetic chronic kidney disease; N18.6 End stage renal disease; E78.00 Pure hypercholesterolemia, unspecified; Z99.2 Dependence on renal dialysis; Z88.6 Allergy status to analgesic agent; Z79.899 Other long term (current) drug therapy; Z79.84 Long term (current) use of oral hypoglycemic drugs
CPT/HCPCS: 36415; 70450; 80053; 84484; 85025

== ENCOUNTER 2023-01-05 20:23 | Emergency (ER) | payer MEDICARE ==
[~2023-01-05] VITALS: Ht 149.9 cm; Wt 96.6 kg
[~2023-01-05 20:23] MED LIST changes: +ACET-2247 PO; +CYCL10TA16 PO; -GLIP5TAB11 PO; +GLIP5TAB15 PO
[2023-01-05 21:11] LABS: APPEARANCE,URINE CLOUDY (CLEAR); BILIRUBIN,URINE NEGATIVE (NEGATIVE); COLOR,URINE YELLOW (YELLOW); GLUCOSE, URINE (UA) NEGATIVE (NEGATIVE); KETONES,URINE NEGATIVE (NEGATIVE); LEUKOCYTE ESTERASE ,URINE LARGE Leu/uL (NEGATIVE); NITRATE,URINE NEGATIVE (NEGATIVE); OCCULT BLOOD,URINE MODERATE (NEGATIVE); PROTEIN,URINE 100 mg/dL (NEGATIVE); UROBILINOGEN,URINE 0.2 mg/dL (0.2-1.0)
[2023-01-05 21:12] LABS: ADD UA MICROSCOPIC YES
[2023-01-05 21:20] LABS: BACTERIA,URINE FEW /HPF (None Seen); MUCUS,URINE RARE LPF (None Seen); NON-SQUAMOUS EPITHELIAL CELL 4 /HPF (0-2); OTHER CASTS, URINE 7 /LPF (None Seen); RBC,URINE 26-50 /HPF (0-1); SQUAMOUS EPITHELIAL CELL,UR MOD /HPF (0-2); UNCLASSIFIED CRYSTAL 14 /HPF (None Seen); WBC CLUMP FEW /HPF (0-1); WBC,URINE >100 /HPF (0-1); YEAST,URINE BUDDING FEW /HPF (None Seen)
[2023-01-05 21:21] LABS: BASOPHILS # (AUTO) 0.05 K/uL (0.00-0.20); BASOPHILS % (AUTO) 0.6 % (0.0-5.0); EOSINOPHILS # (AUTO) 0.16 K/uL (0.00-0.70); HEMATOCRIT 33.1 % (36-48); IMMATURE GRANULOCYTE ABSOLUTE 0.06 K/uL (0-1); LYMPHOCYTES # (AUTO) 1.3 K/uL (1.0-4.8); LYMPHOCYTES % (AUTO) 16.1 % (21.0-51.0); MEAN CORPUSCULAR HEMOGLOBIN 32.9 pg (27.0-33.0); MEAN CORPUSCULAR VOLUME 102.8 fL (79-99); MONOCYTES # (AUTO) 0.5 K/uL (0.1-1.0); MONOCYTES % (AUTO) 6.4 % (3.0-13.0); NEUTROPHILS % (AUTO) 74.2 % (40.0-77.0); PLATELET COUNT (AUTO) 188 K/uL (130-400); RED BLOOD CELL COUNT(AUTO) 3.22 MIL/uL (4.00-5.50); RED CELL DISTRIBUTION WIDTH 13.5 % (11.0-15.5); WHITE BLOOD COUNT (AUTO) 8.1 K/uL (4.8-10.8)
[2023-01-05 21:41] LABS: B-TYPE NATRIURETIC PEPTIDE 618 pg/mL (0-100)
[2023-01-05 21:54] LABS: MAGNESIUM 2.1 mg/dL (1.80-2.40); POTASSIUM 4.3 mmol/L (3.5-5.1); THYROID STIMULATING HORMONE 1.57 uIU/mL (0.36-3.74)
[2023-01-05 21:55] LABS: CREATININE 8.4 mg/dL (0.5-1.5)
[2023-01-05] MEDS ORDERED: CEPHALEXIN 250 MG CAPSULE PO SCH (22:30)
[2023-01-05] MEDS ORDERED: CEPH500B PO (22:35)
[2023-01-05 23:15] VITALS: BP 147/74; PULSE 82; RESP 18; O2SAT 99
== END 2023-01-05 23:19 | disposition home or self-care (01) ==
LOC: EDH 20:23
DX: N39.0 Urinary tract infection, site not specified (principal); I16.0 Hypertensive urgency; I12.0 Hypertensive chronic kidney disease with stage 5 chronic kidney disease or end stage renal disease; E11.22 Type 2 diabetes mellitus with diabetic chronic kidney disease; N18.6 End stage renal disease; Z99.2 Dependence on renal dialysis; Z79.01 Long term (current) use of anticoagulants; Z79.52 Long term (current) use of systemic steroids; Z79.84 Long term (current) use of oral hypoglycemic drugs; Z79.899 Other long term (current) drug therapy; Z88.6 Allergy status to analgesic agent; Z90.49 Acquired absence of other specified parts of digestive tract
CPT/HCPCS: 36415; 70450; 71045; 80048; 81001; 82550; 82948; 83605; 83735; 83874; 83880; 84443; 84484; 85025; 87088; 93005